=== PATIENT | male | born 1970 | race Caucasian/White ===

== ENCOUNTER 2019-05-30 09:14 | Day surgery (SDC) | payer BC ==
[~2019-05-30] VITALS: Ht 162.6 cm; Wt 109.0 kg
[2019-05-30 10:37] LABS: BASOPHILS % 0.4 % (0.0-2.0); EOSINOPHILS % 0.5 % (0.0-5.0); HEMATOCRIT. 43.6 % (42.0-52.0); HEMOGLOBIN. 14.8 g/dL (14.0-18.0); MEAN CORPUSCULAR HEMOGLOBIN 30.5 pg (28.0-32.0); MEAN CORPUSCULAR VOLUME 89.6 fL (80.0-94.0); MEAN PLATELET VOLUME 7.8 fl (7.4-10.4); MONOCYTES % 5.1 % (2.0-8.0); PLATELET 254 x1000/uL (130-400); RED BLOOD CELL COUNT 4.87 mill/uL (4.7-6.1)
[2019-05-30] MEDS ORDERED: CEFUROXIME SODIUM 750 MG in DEXTROSE 5% WATER 50 ML IV SCH (12:45)
[2019-05-30 13:13] LABS: CHLORIDE 104 mEq/L (98-107)
[2019-05-30 13:44] LABS: PARTIAL THROMBOPLASTIN TIME 27.6 sec (23.4-31.0); PROTHROMBIN TIME 10.3 sec (9.6-11.0)
[2019-05-30] MEDS ORDERED: AMPICILLIN SOD/SULBACTAM NA 3 G in SODIUM CHLORIDE 0.9% 100 ML IV SCH (14:00)
[2019-05-30] MEDS ORDERED: SKIN ADHESIVE 0.7 GM EA TOP ONE (14:17)
[2019-05-30] MEDS ORDERED: BUPIVACAINE HCL 0.5% (5MG/ML) 50ML ONE (14:18)
[2019-05-30] MEDS ORDERED: DEXT 5%/LACTATED RINGERS 1,000 ML IV SCH (14:21)
[2019-05-30] MEDS ORDERED: ACETAMINOPHEN 325MG TABLET PO PRN (14:30)
[2019-05-30] MEDS ORDERED: DOCUSATE SODIUM 100MG CAPSULE PO PRN (14:30)
[2019-05-30] MEDS ORDERED: GUAIFENESIN 200MG/10ML SUGAR FREE UDC PO PRN (14:30)
[2019-05-30] MEDS ORDERED: CLONIDINE 0.1MG TABLET PO PRN (14:30)
[2019-05-30] MEDS ORDERED: MAGNESIUM/ALUMINUM HYDROXIDE/SIMETHICONE 30ML UDC PO PRN (14:30)
[2019-05-30] MEDS ORDERED: IPRATROPIUM/ALBUTEROL 0.5-3(2.5)MG/3ML NEB NEB PRN (14:30)
[2019-05-30] MEDS ORDERED: ONDANSETRON HCL 4MG/2ML INJ IV PRN ×2 (14:30→14:45)
[2019-05-30] MEDS ORDERED: NITROGLYCERIN 0.4MG TABLET SL SL PRN (14:30)
[2019-05-30] MEDS ORDERED: MORPHINE SULFATE 2 MG/ML CPJ (NOT FOR IM USE) IV PRN ×2 (14:30→14:45)
[2019-05-30] MEDS ORDERED: SODIUM CHLORIDE 0.9% 1,000 ML IV ONE (14:38)
[2019-05-30] MEDS ORDERED: HYDROMORPHONE HCL/PF 2MG/ML CPJ IV PRN (14:45)
[2019-05-30] MEDS ORDERED: MEPERIDINE HCL/PF 25MG/ML CPJ IV PRN ×2 (14:45)
[2019-05-30] MEDS ORDERED: GLYCOPYRROLATE 0.2 MG/ML 2ML VIAL ONE (14:48)
[2019-05-30] MEDS ORDERED: MIDAZOLAM HCL 2 MG/2 ML VIAL ONE (14:48)
[2019-05-30] MEDS ORDERED: PROPOFOL 200MG/20ML VIAL IV ONE (14:48)
[2019-05-30] MEDS ORDERED: ROCURONIUM BROMIDE 10MG/ML VIAL 5ML IV ONE (14:48)
[2019-05-30] MEDS ORDERED: NEOSTIGMINE METHYLSULFATE 1MG/ML 10 ML VIAL ONE (14:48)
[2019-05-30] MEDS ORDERED: FENTANYL CITRATE/PF 50MCG/ML 2ML VIAL ONE ×2 (14:48→15:24)
[2019-05-30] MEDS ORDERED: CEFAZOLIN SODIUM 1000MG/VIAL ONE (14:49)
[2019-05-30] MEDS ORDERED: LIDOCAINE HCL/PF 1% 10 MG/ML 5ML VIAL ONE (14:49)
[2019-05-30] MEDS ORDERED: SODIUM CHLORIDE 0.9% 10ML VIAL ONE (14:49)
[2019-05-30] MEDS ORDERED: METOCLOPRAMIDE HCL 10MG/2ML VIAL ONE (14:49)
[2019-05-30] MEDS ORDERED: SUCCINYLCHOLINE CHLORIDE 200MG/10ML IV ONE (14:49)
[2019-05-30] MEDS ORDERED: KETOROLAC 30MG/ML VIAL ONE (15:52)
[2019-05-30 16:29] LABS: CLARITY URINE CLEAR (CLEAR); COLOR URINE YELLOW (YELLOW); KETONES URINE NEGATIVE (NEGATIVE); LEUKOCYTE ESTERASE URINE NEGATIVE (NEGATIVE); NITRITE URINE NEGATIVE (NEGATIVE); OCCULT BLOOD URINE NEGATIVE (NEGATIVE); PROTEIN URINE NEGATIVE (NEGATIVE); SPECIFIC GRAVITY URINE 1.014 (1.005-1.030); UROBILINOGEN URINE 0.2 E.U./dL (0.2-1.0)
[2019-05-30] MEDS ORDERED: HYDROCODONE/ACETAMINOPHEN 5/325MG TABLET PO PRN (16:45)
[2019-05-30 17:05] VITALS: BP 136/94
[2019-05-31] MEDS ORDERED: PANTOPRAZOLE SODIUM 40 MG/VIAL IV SCH (09:00)
[2019-05-31] MEDS ORDERED: ZOLPIDEM TARTRATE 5MG TABLET PO PRN (21:00)
== END 2019-05-30 18:11 | disposition home or self-care (01) ==
LOC: ER 09:28 → SUPCPDRO 14:19 → OR 14:55 → ENRESERV 15:54 → OR 18:11 → CANBEDREQ 19:19
PROVIDERS: ATTEND Surgery
DX: K35.80 Unspecified acute appendicitis (principal); I10 Essential (primary) hypertension; E87.1 Hypo-osmolality and hyponatremia; R63.4 Abnormal weight loss; Z79.899 Other long term (current) drug therapy
CPT/HCPCS: 36415; 44970; 71045; 74176; 80048; 81003; 83036; 85025; 85610; 85730; 86850; 86900; 86901; 88304; 93005; 99284; J0295; J0330; J0690; J1885; J2250; J2405; J2704; J2710; J2765; J3010; J3490; J7050; J0697; J7060